=== PATIENT | female | born 1980 | race Caucasian/White ===

== ENCOUNTER 2019-08-06 00:22 | Inpatient (IN) | payer MEDICAID ==
[~2019-08-06] VITALS: Ht 152.4 cm; Wt 66.2 kg
[2019-08-06 00:37] VITALS: Ht 152.4 cm; Wt 66.2 kg
[2019-08-06 01:03] LABS: BASOPHIL % 1.3 % (0-2); PLATELET COUNT 307 x10^3mcL (130-400); RED CELL DISTRIBUTION WIDTH 12.5 % (11.5-14.5)
[2019-08-06 01:13] LABS: ALBUMIN 3.5 g/dL (3.4-5.0); ALKALINE PHOSPHATASE 73 U/L (46-116); ALT/SGPT 57 U/L (14-59); AST/SGOT 29 U/L (15-37); BILIRUBIN TOTAL 0.34 mg/dL (0.20-1.00); CALCIUM 8.8 mg/dL (8.5-10.1); CARBON DIOXIDE 25.4 mmol/L (21-32); CHLORIDE SERUM 105 mmol/L (98-107); CREATININE SERUM 0.7 mg/dL (0.6-1.0); GFR1 > 60 mL/min; GLUCOSE SERUM 110 mg/dL (74-106); POTASSIUM SERUM 3.8 mmol/L (3.5-5.1); SODIUM SERUM 141 mmol/L (136-145); TOTAL PROTEIN, SERUM 7.3 g/dL (6.4-8.2)
[2019-08-06 02:22] LABS: CHOLESTEROL/HDL RATIO 2.5; MAGNESIUM 1.9 mg/dL (1.8-2.4); PHOSPHOROUS 3.5 mg/dL (2.5-4.9)
[2019-08-06 02:31] LABS: T3 TOTAL 1.46 ng/mL
[2019-08-06 02:34] LABS: FREE T4 0.96 ng/dL (0.76-1.46); T4(THYROXINE) 9.5 ug/dL (4.7-13.3)
[2019-08-06 02:37] LABS: microscopic required? YES; urine erythrocyte TRACE (NEGATIVE)
[2019-08-06 02:44] LABS: AMPHETAMINE QUAL UR NONE DETECTED (See below)
[2019-08-06 03:50] VITALS: BP 105/60
[2019-08-06 06:42] LABS: BASOPHIL % 0.7 % (0-2); PLATELET COUNT 258 x10^3mcL (130-400); RED CELL DISTRIBUTION WIDTH 13.5 % (11.5-14.5)
[2019-08-06 07:07] LABS: CALCIUM 8.6 mg/dL (8.5-10.1); CARBON DIOXIDE 25.9 mmol/L (21-32); CHLORIDE SERUM 105 mmol/L (98-107); CREATININE SERUM 0.6 mg/dL (0.6-1.0); GFR1 > 60 mL/min; GLUCOSE SERUM 104 mg/dL (74-106); PHOSPHOROUS 4.4 mg/dL (2.5-4.9); SODIUM SERUM 138 mmol/L (136-145)
[2019-08-06 08:24] LABS: MAGNESIUM 2.1 mg/dL (1.8-2.4)
[2019-08-06 12:37] VITALS: BP 94/59
[2019-08-06] MEDS ORDERED: PRI20 PO (15:18)
[2019-08-06] MEDS ORDERED: NOVAPLUS LIDOCAINE5% TOP (15:19)
[2019-08-06] MEDS ORDERED: [UNRECOGNIZED DRUG - SUPPLY] MC (15:19)
== END 2019-08-06 16:34 | disposition home or self-care (01) | DRG 243 ==
LOC: ED 00:22 → DU 01:54
PROVIDERS: Emergency Medicine; ADMIT Family Medicine
DX: K21.9 Gastro-esophageal reflux disease without esophagitis (principal); E03.9 Hypothyroidism, unspecified; M94.0 Chondrocostal junction syndrome [Tietze]; Z87.442 Personal history of urinary calculi
CPT/HCPCS: 84439; 90658; G0378; J1885; Q0092